=== PATIENT | female | born 1995 | race Caucasian/White ===

== ENCOUNTER 2019-09-21 21:43 | Emergency (ER) | payer SELFPAY ==
[~2019-09-21] VITALS: Ht 157.4 cm; Wt 54.4 kg
[~2019-09-21 21:43] MED LIST: AUGMENTIN 500500 M1 PO; NORCO 5-325 TA1 EACH PO; ZOFRAN ODT4 MG SL
[2019-09-21 23:02] LABS: BILIRUBIN NEGATIVE (NEGATIVE); BLOOD NEGATIVE (NEGATIVE); CLARITY CLOUDY (CLEAR); COLOR YELLOW (YELLOW); GLUCOSE NEGATIVE (NEGATIVE); KETONE NEGATIVE (NEGATIVE); LEUKO ESTERASE NEGATIVE (NEGATIVE); NITRITE NEGATIVE (NEGATIVE); UROBILINOGEN 0.2 E.U./dl (0.2-1.0)
[2019-09-21 23:16] LABS: BACTERIA 2+
[2019-09-21 23:17] LABS: WBC 0-2 wbc/hpf (0-5)
[2019-09-21] MEDS ORDERED: FLAGYL500 MG PO (23:56)
== END 2019-09-22 00:24 | disposition home or self-care (01) ==
LOC: ED 21:43
PROVIDERS: Emergency Medicine
DX: N76.0 Acute vaginitis (principal)

== ENCOUNTER 2020-12-11 11:31 | Emergency (ER) | payer SELFPAY ==
[~2020-12-11] VITALS: Wt 52.2 kg
[~2020-12-11 11:31] MED LIST changes: +FLAGYL500 MG PO
[2020-12-11 12:21] LABS: BASO % 0.2 % (0.0-1.0); EOS # 0.1 10*3/uL (0.0-0.4); EOS % 0.9 % (1.0-4.0); LYMPH # 1.1 10*3/uL (1.3-4.4); MEAN CELL VOLUME 95.2 fl (81.0-99.0); MEAN CORPUSCULAR HGB 31.7 pg (27.0-31.0); MEAN CORPUSCULAR HGB CONC 33.3 g/dl (33.0-37.0); MEAN PLATELET VOLUME 9.6 fl (9.6-12.3); MONO # 0.7 10*3/uL (0.1-1.0); MONO % 5.1 % (3.0-9.0); NEUT # 11.3 10*3/uL (2.3-7.9); NEUT % 85.4 % (47.0-73.0); PLATELET COUNT AUTOMATED 232 10*3/uL (130-400); RED BLOOD COUNT 3.78 10*6/uL (4.10-5.10); RED CELL DISTRI WIDTH 11.9 % (0-14.5); WHITE BLOOD COUNT 13.2 10*3/uL (4.8-10.8)
[2020-12-11 12:28] LABS: BILIRUBIN Negative (Negative); BLOOD 1+ (Negative); CLARITY Clear (Clear); COLOR Yellow (Yellow); GLUCOSE Negative (Negative); KETONE Negative (Negative); LEUKO ESTERASE 3+ (Negative); NITRITE Negative (Negative); UROBILINOGEN 0.2 E.U./dl (0.0-1.0)
[2020-12-11 12:36] LABS: ALBUMIN 3.4 gm/dl (3.1-4.5); ALKALINE PHOSPHATASE 52 U/L (45-117); BUN 10 mg/dl (7-24); CHLORIDE 110 mmol/L (98-107); CREATININE 0.66 mg/dL (0.55-1.02); POTASSIUM 4.1 mmol/L (3.5-5.1); SGOT/AST 11 IU/L (3-35); SGPT/ALT 27 U/L (12-78); SODIUM 140 mmol/L (136-145); TOTAL PROTEIN 6.6 gm/dL (6.4-8.2)
[2020-12-11 12:39] LABS: WBC 16-20 wbc/hpf (0-5)
[2020-12-11] MEDS ORDERED: OMNICEF300 MG PO (15:00)
== END 2020-12-11 15:10 | disposition home or self-care (01) ==
LOC: ED 11:31
PROVIDERS: Registered Nurse
DX: N39.0 Urinary tract infection, site not specified (principal); Z91.040 Latex allergy status; Z79.899 Other long term (current) drug therapy